=== PATIENT | female | born 1970 | race Caucasian/White ===

== ENCOUNTER 2016-10-31 19:18 | Emergency (ER) | payer MEDICAID, OTHER ==
[2016-10-31 19:26] VITALS: RESP 16
--- NOTE | 2016-10-31 19:36 | CPEKG ---
Heart Rate: 112 RR Interval: 536 P-R Interval: 132 QRSD Interval: 76 QT Interval: 336 QTC Interval: 459 P [place]: 42 QRS [place]: 13 T Wave [place]: 41 EKG Severity - BORDERLINE ECG - EKG Impression: SINUS TACHYCARDIA EKG Impression: BORDERLINE R WAVE PROGRESSION, ANTERIOR LEADS Electronically Signed By: Lucas Leo 31-Oct-2016 21:15:39
--- NOTE | 2016-10-31 19:41 | EDPHY ---
H & P Stated Complaint: CP Time Seen by Provider: 10/31/16 19:40 - Personal History LMP (Females 10-55): IUD In Place Current Tetanus/Diphtheria Vaccine: Yes Current Tetanus Diphtheria and Acellular Pertussis (TDAP): Yes Tetanus Vaccine Date: 05/2011 - Medical/Surgical History Hx Asthma: No Hx Chronic Respiratory Disease: No Hx Diabetes: Yes Hx Cardiac Disease: No Hx Renal Disease: No Hx Cirrhosis: No Hx Alcoholism: No Hx HIV/AIDS: No Hx Splenectomy or Spleen Trauma: No Other PMH: HTN, DM2, Flores, thyroid growth removed, lap band, bipolar - Social History Smoking Status: Former smoker Constitutional: Initial Vital Signs Temperature (C) 37.4 C 10/31/16 19:22 Heart Rate 120 H 10/31/16 19:22 Respiratory Rate 16 10/31/16 19:22 Blood Pressure 153/110 H 10/31/16 19:22 O2 Sat (%) 96 10/31/16 19:22 O2 Delivery Mode Room Air Allergies/Adverse Reactions: No Known Allergies Allergy (Unverified 10/31/16 19:21) Home Medications: Medication Instructions Recorded FLUoxetine [Prozac] 20 mg PO DAILY 09/20/13 Lisinopril/Hctz 20/12.5MG 1 ea PO DAILY 09/20/13 [Zestoretic/Prinzide] Nortriptyline HCl [Pamelor 10 mg 10 mg PO HS 09/20/13 (RX)] Nortriptyline HCl [Pamelor 50 mg 50 mg PO HS 09/20/13 (RX)] OLANZapine [Zyprexa Zydis] 20 mg PO HS 09/20/13 clonazePAM [Klonopin (RX)] 0.5 mg PO HS 09/20/13 Metformin HCl 10/31/16 Trileptal 10/31/16 Medical Decision Making - Diagnostics Imaging Results: Imaging Impressions Chest/Thorax CTA 10/31/16 20:19 Impression: 1. No evidence of pulmonary embolus using CT protocol. 2. No significant abnormality within the chest. Findings discussed with Lucas Leo MD at 21:06 hour, 10/31/2016. Imaging: Discussed imaging studies w/ orthopedically impaired teacher Radiologist, I viewed and interpreted images myself ED Course/Re-evaluation: CHIEF COMPLAINT: Chest pain HISTORY OF PRESENT ILLNESS: The patient is a 45 y/o female with a history of diabetes and hypertension complaining of worsening left-sided chest pain beginning 10 hours ago. She says, "I've had mild, but persistent left-sided chest pain becoming more constant and more severe" through the day. She currently describes her pain as "dull tightness" over her left anterior chest. Her pain is not aggravated by exertion, movement, or breathing. She has no personal or familial cardiac history. REVIEW OF SYSTEMS: A 10 point review of systems was performed and is negative with the exception of the elements mentioned in the history of present illness. PHYSICAL EXAM: HR, BP, O2 Sat, RR. Temp noted General Appearance: Alert, well hydrated, appropriate, and non-toxic appearing. Head: Atraumatic without scalp tenderness or obvious injury Eyes: Pupils equal, round, reactive to light and accommodation, EOMI, no trauma , no injection. Nose: Atraumatic, no rhinorrhea, clear. Throat: There is no erythema or exudates, no lesions, normal tonsils, mucus membranes moist. Neck: Supple, nontender, no lymphadenopathy. Respiratory: No retractions, no distress, no wheezes, and no accessory muscle use. Lungs are clear to auscultation bilaterally. Cardiovascular: Tachycardic Regular rate and rhythm, no murmurs, rubs, or gallops. Good capillary refill all extremities. Gastrointestinal: Abdomen is soft, nontender, non-distended, no masses, no rebound, no guarding, no peritoneal signs. Musculoskeletal: Normal active ROM of all extremities, atraumatic. Neurological: Alert, appropriate, and interactive. Nonfocal neuro exam. Skin: No rashes, good turgor, no nodules on palpation. Past medical history: Hypertension, diabetes type II, baseline tachycardia Past surgical history: lap band surgery Family history: No cardiac history Social history: PCP: Dr. Lyndsay Feliz DIAGNOSTICS/PROCEDURES/CRITICAL CARE TIME: The 12 lead EKG was interpreted by myself. Sinus tachycardia. See hard copy and/ or "tracemaster" electronic copy for interpretation. Chest x-ray: negative CTA chest: negative DIFFERENTIAL DIAGNOSIS: The differential diagnosis for the patient's chest pain included but was not limited to myocardial ischemia, pulmonary embolus, chest wall pain, pleural inflammation, and pulmonary infectious causes. MEDICAL DECISION MAKING: This is a 45 y/o female complaining of a 10-hour history of worsening waxing and waning left-sided chest pain. She has no prior cardiac history apart from known tachycardia that has been evaluated by her PCP. Her pain is not reproducible on exam. Plan for cardiac work up including IV, labs, EKG. We expect her troponin to be sensitive due to 10 hours of symptoms. EKG shows sinus tachycardia. D-dimer is elevated; plan for CTA chest. Troponin is negative. CTA is negative. Reassessed patient and discussed work up. She continues to be tachycardic, but reports this is baseline for her and she is not seeking further evaluation for this. She is comfortable going home and following up with a title 1 tutor this week. Strict return precautions given. - Data Points Laboratory Results: Laboratory Results 10/31/16 19:35 10/31/16 19:35 10/31/16 10/31/16 10/31/16 19:35 19:35 19:35 WBC RBC Hgb Hct MCV MCH MCHC RDW Plt Count MPV Neut % (Auto) Lymph % (Auto) [place] % (Auto) Eos % (Auto) Baso % (Auto) Nucleat RBC Rel Count Absolute Neuts (auto) Absolute Lymphs (auto) Absolute Monos (auto) Absolute Eos (auto) Absolute Basos (auto) Absolute Nucleated RBC Immature Gran % Immature Gran # D-Dimer 0.61 ug/mLFEU H ug/mLFEU (0.00-0.50) Sodium 135 mEq/L mEq/L (134-144) Potassium 4.1 mEq/L mEq/L (3.5-5.2) Chloride 100 mEq/L mEq/L (97-110) Carbon Dioxide 20 mEq/l L mEq/l (22-31) Anion Gap 15 mEq/L mEq/L (8-16) BUN 12 mg/dL mg/dL (7-23) Creatinine 0.7 mg/dL mg/dL (0.6-1.0) Estimated GFR > 60 Glucose 100 mg/dL mg/dL (70-100) Calcium 9.8 mg/dL mg/dL (8.5-10.4) Troponin I < 0.012 ng/mL ng/mL (0-0.034) NT-Pro-B Natriuret Pep 27 pg/mL pg/mL (0-125) 10/31/16 19:35 WBC 11.00 10^3/uL H 10^3/uL (3.80-9.50) RBC 4.74 10^6/uL 10^6/uL (4.18-5.33) Hgb 14.0 g/dL g/dL (12.6-16.3) Hct 40.9 % % (38.0-47.0) MCV 86.3 fL fL (81.5-99.8) MCH 29.5 pg pg (27.9-34.1) MCHC 34.2 g/dL g/dL (32.4-36.7) RDW 12.4 % % (11.5-15.2) Plt Count 198 10^3/uL 10^3/uL (150-400) MPV 12.2 fL H fL (8.7-11.7) Neut % (Auto) 62.2 % % (39.3-74.2) Lymph % (Auto) 27.5 % % (15.0-45.0) [place] % (Auto) 9.2 % % (4.5-13.0) Eos % (Auto) 0.0 % L % (0.6-7.6) Baso % (Auto) 0.3 % % (0.3-1.7) Nucleat RBC Rel Count 0.0 % % (0.0-0.2) Absolute Neuts (auto) 6.85 10^3/uL H 10^3/uL (1.70-6.50) Absolute Lymphs (auto) 3.02 10^3/uL H 10^3/uL (1.00-3.00) Absolute Monos (auto) 1.01 10^3/uL H 10^3/uL (0.30-0.80) Absolute Eos (auto) 0.00 10^3/uL L 10^3/uL (0.03-0.40) Absolute Basos (auto) 0.03 10^3/uL 10^3/uL (0.02-0.10) Absolute Nucleated RBC 0.00 10^3/uL 10^3/uL (0-0.01) Immature Gran % 0.8 % % (0.0-1.1) Immature Gran # 0.09 10^3/uL 10^3/uL (0.00-0.10) D-Dimer Sodium Potassium Chloride Carbon Dioxide Anion Gap BUN Creatinine Estimated GFR Glucose Calcium Troponin I NT-Pro-B Natriuret Pep Departure - Departure Disposition: Home, Routine, Self-Care Clinical Impression: Atypical chest pain Condition: Good Instructions: Chest Pain (ED) Additional Instructions: Follow up with Dr. Kwan, title 1 tutor, this week. Return to the ED for worsening of condition. Referrals: Lyndsay Feliz MD [Primary Care Provider] - As per Instructions Lucio Kwan MD [Medical Doctor] - As per Instructions Report Scribed for: Lucas Leo Report Scribed by: Jazmín Martin Date of Report: 10/31/16 Time of Report: 20:19
[2016-10-31 19:47] LABS: % IMMATURE GRANULYOCYTES 0.8 % (0.0-1.1); ABSOLUTE IMMATURE GRANULOCYTES 0.09 10^3/uL (0.00-0.10); ADD DIFF? NO; ADD MORPH? NO; ADD SCAN? NO; ATYPICAL LYMPHOCYTE FLAG 10 (0-99); FRAGMENT RBC FLAG 0 (0-99); HEMATOCRIT 40.9 % (38.0-47.0); LEFT SHIFT FLG 0 (0-99); LIPEMIA HEMOLYSIS FLAG 90 (0-99); MEAN CELL HEMOGLOBIN 29.5 pg (27.9-34.1); MEAN CELL HEMOGLOBIN CONCENTR. 34.2 g/dL (32.4-36.7); MEAN CELL VOLUME 86.3 fL (81.5-99.8); MEAN PLATELET VOLUME 12.2 fL (8.7-11.7); PLATELET CLUMPS FLAG 20 (0-99); PLATELET COUNT 198 10^3/uL (150-400); RED BLOOD CELL COUNT 4.74 10^6/uL (4.18-5.33); RED CELL DISTRIBUTION WIDTH 12.4 % (11.5-15.2)
[2016-10-31 20:01] LABS: ANION GAP 15 mEq/L (8-16); CALCIUM 9.8 mg/dL (8.5-10.4); CARBON DIOXIDE 20 mEq/l (22-31); CHLORIDE 100 mEq/L (97-110); CREATININE 0.7 mg/dL (0.6-1.0); GLOMERULAR FILTRATION RATE > 60; GLUCOSE 100 mg/dL (70-100); POTASSIUM 4.1 mEq/L (3.5-5.2); SODIUM 135 mEq/L (134-144)
[2016-10-31 20:13] LABS: TROPONIN I < 0.012 ng/mL (0-0.034)
[2016-10-31] MEDS ORDERED: IOPAMIDOL (ISOVUE 370) 100 ML BTL IV ONE (20:36)
[2016-10-31 21:27] VITALS: BP 146/92; PULSE 101; TEMP 98.2; O2SAT 94
== END 2016-10-31 21:28 | disposition home or self-care (01) ==
DX: R07.89 Other chest pain (principal); I10 Essential (primary) hypertension; E11.9 Type 2 diabetes mellitus without complications; Z79.84 Long term (current) use of oral hypoglycemic drugs; Z87.891 Personal history of nicotine dependence
CPT/HCPCS: 71020; 71275; 93005; 99285; Q9967